=== PATIENT | male | born 1980 | race Hispanic/Latino ===

== ENCOUNTER 2019-11-26 23:08 | Emergency (ER) | payer OTHER ==
[2019-11-26 23:50] LABS: BASOPHILS % (AUTO) 1.2 % (0.0-5.0); EOSINOPHILS % (AUTO) 2.2 % (0.0-8.0); HEMATOCRIT 49.3 % (42-54); LYMPHOCYTES % (AUTO) 38.2 % (21.0-51.0); MEAN CORPUSCULAR HEMOGLOBIN 31.4 pg (27.0-33.0); MEAN CORPUSCULAR HGB CONC 35.7 g/dL (32.0-36.0); MONOCYTES % (AUTO) 7.5 % (3.0-13.0); NEUTROPHILS % (AUTO) 50.7 % (40.0-77.0); PLATELET COUNT (AUTO) 202 K/uL (130-400); RED CELL DISTRIBUTION WIDTH 13.3 % (11.0-15.5)
[2019-11-26] MEDS ORDERED: SODIUM CHLORIDE 0.9% 1000ML 1,000 ML IV ONE (23:53)
[2019-11-26 23:57] LABS: POTASSIUM 4.3 mmol/L (3.5-5.1)
[2019-11-26 23:58] LABS: INR 1.03 (0.85-1.15); PROTHROMBIN TIME 10.8 SEC (9.6-11.6)
[2019-11-27 00:02] LABS: ALBUMIN 4.2 g/dL (3.5-5.0); BILIRUBIN,TOTAL 0.3 mg/dL (0.2-1.0); TOTAL PROTEIN, SERUM 8.1 g/dL (6.0-8.3)
[2019-11-27 00:24] LABS: APPEARANCE,URINE Clear (CLEAR); BILIRUBIN,URINE Negative (NEGATIVE); COLOR,URINE Yellow (YELLOW); GLUCOSE, URINE (UA) Negative (NEGATIVE); KETONES,URINE Negative (NEGATIVE); LEUKOCYTE ESTERASE ,URINE Negative (NEGATIVE); NITRATE,URINE Negative (NEGATIVE); OCCULT BLOOD,URINE Negative (NEGATIVE); PROTEIN,URINE Negative (NEGATIVE); UROBILINOGEN,URINE 0.2 mg/dL (0.2-1.0)
== END 2019-11-27 01:08 | disposition home or self-care (01) ==
LOC: EDH 23:08
DX: F43.9 Reaction to severe stress, unspecified (principal); R42 Dizziness and giddiness; Z72.0 Tobacco use; Z90.49 Acquired absence of other specified parts of digestive tract
CPT/HCPCS: 36415; 71045; 80053; 81003; 82550; 84484; 85025; 85610; 85730; 93005; 96360; 99285; J7030

== ENCOUNTER 2020-02-01 14:52 | Emergency (ER) | payer SELFPAY ==
[2020-02-01 15:14] LABS: BASOPHILS % (AUTO) 1.3 % (0.0-5.0); EOSINOPHILS % (AUTO) 2.1 % (0.0-8.0); HEMATOCRIT 49.1 % (42-54); LYMPHOCYTES % (AUTO) 44.1 % (21.0-51.0); MEAN CORPUSCULAR HEMOGLOBIN 31.5 pg (27.0-33.0); MEAN CORPUSCULAR VOLUME 87.4 fL (79-99); MONOCYTES % (AUTO) 5.1 % (3.0-13.0); PLATELET COUNT (AUTO) 185 K/uL (130-400); RED BLOOD CELL COUNT(AUTO) 5.62 MIL/uL (4.50-6.20); RED CELL DISTRIBUTION WIDTH 12.8 % (11.0-15.5); WHITE BLOOD COUNT (AUTO) 5.3 K/uL (4.8-10.8)
[2020-02-01 15:26] LABS: INR 1.06 (0.85-1.15); PARTIAL THROMBOPLASTIN TIME 26.7 SEC (26.3-35.5); PROTHROMBIN TIME 11.4 SEC (9.6-11.6)
[2020-02-01 15:27] LABS: POTASSIUM 4.2 mmol/L (3.5-5.1)
[2020-02-01 15:31] LABS: ALBUMIN 4.6 g/dL (3.5-5.0); BILIRUBIN,TOTAL 0.8 mg/dL (0.2-1.0); TOTAL PROTEIN, SERUM 8.1 g/dL (6.0-8.3)
[2020-02-01 16:51] LABS: APPEARANCE,URINE Clear (CLEAR); BILIRUBIN,URINE Negative (NEGATIVE); COLOR,URINE Yellow (YELLOW); GLUCOSE, URINE (UA) Negative (NEGATIVE); KETONES,URINE Negative (NEGATIVE); LEUKOCYTE ESTERASE ,URINE Negative (NEGATIVE); NITRATE,URINE Negative (NEGATIVE); OCCULT BLOOD,URINE Negative (NEGATIVE); PROTEIN,URINE Negative (NEGATIVE); UROBILINOGEN,URINE 0.2 mg/dL (0.2-1.0)
[2020-02-01 17:03] LABS: AMPHET/METH SCREEN,URINE NEGATIVE (NEGATIVE); BARBITURATE SCREEN, URINE NEGATIVE (NEGATIVE); BENZODIAZEPINES SCREEN,URINE NEGATIVE (NEGATIVE); CANNABINOID SCREEN,URINE NEGATIVE (NEGATIVE); COCAINE SCREEN,URINE NEGATIVE (NEGATIVE); OPIATE SCREEN,URINE NEGATIVE (NEGATIVE); PHENCYCLIDINE SCREEN,URINE NEGATIVE (NEGATIVE)
[2020-02-01] MEDS ORDERED: IOHEXOL-350 75 ML VIAL IV ONE (17:12)
== END 2020-02-01 19:38 | disposition home or self-care (01) ==
LOC: EDH 14:52
DX: R53.1 Weakness (principal); Z90.49 Acquired absence of other specified parts of digestive tract; Z72.0 Tobacco use
CPT/HCPCS: 36415; 70450; 70496; 70498; 70551; 71045; 80053; 80305; 81003; 82550; 82948; 83721; 84484; 85025; 85610; 85730; 93005; 96374; 96375; 99285; Q9967

== ENCOUNTER 2020-04-01 06:30 | Inpatient (IN) | payer OTHER ==
[2020-04-01 08:26] LABS: BASOPHILS % (AUTO) 0.5 % (0.0-5.0); EOSINOPHILS % (AUTO) 0.3 % (0.0-8.0); HEMATOCRIT 48.4 % (42-54); LYMPHOCYTES % (AUTO) 35.1 % (21.0-51.0); MEAN CORPUSCULAR HEMOGLOBIN 31.4 pg (27.0-33.0); MEAN CORPUSCULAR HGB CONC 36.6 g/dL (32.0-36.0); MONOCYTES % (AUTO) 9.6 % (3.0-13.0); NEUTROPHILS % (AUTO) 54.2 % (40.0-77.0); PLATELET COUNT (AUTO) 155 K/uL (130-400); RED BLOOD CELL COUNT(AUTO) 5.63 MIL/uL (4.50-6.20); RED CELL DISTRIBUTION WIDTH 12.7 % (11.0-15.5); WHITE BLOOD COUNT (AUTO) 3.9 K/uL (4.8-10.8)
[2020-04-01 08:46] LABS: CREATININE 0.9 mg/dL (0.5-1.5); POTASSIUM 3.7 mmol/L (3.5-5.1)
[2020-04-01 08:50] LABS: ALBUMIN 4.2 g/dL (3.5-5.0); BILIRUBIN,TOTAL 0.7 mg/dL (0.2-1.0); CRP QUANTITATIVE 29.3 mg/L (0.00-9.0); TOTAL PROTEIN, SERUM 7.8 g/dL (6.0-8.3)
[2020-04-01 09:29] LABS: ABG BASE EXCESS -0.9 mmol/L (-2.0-3.0); ABG HCO3 22.1 mmol/L (21.0-28.0); ABG PCO2 32 mmHg (35-48)
[2020-04-01] MEDS ORDERED: MAG HYDROX/AL HYDROX/SIMETH ES 30 ML SUSP UDCUP PO PRN (13:00)
[2020-04-01] MEDS ORDERED: DiphenhydrAMINE HCL 50 MG/ML VIAL IV PRN (13:00)
[2020-04-01] MEDS ORDERED: DIPHENHYDRAMINE HCL 25 MG CAPSULE PO PRN (13:00)
[2020-04-01] MEDS ORDERED: DEXAMETHASONE SOD PHOSPHATE 4 MG/ML 1ML VIAL IVP SCH (13:00)
[2020-04-01] MEDS ORDERED: ONDANSETRON HCL 4 MG/2 ML VIAL IV PRN (13:00)
[2020-04-01] MEDS ORDERED: NITROGLYCERIN 0.4 MG SL TAB SL PRN (13:00)
[2020-04-01] MEDS ORDERED: GUAIFENESIN-DM 200/20 MG 10 ML PO PRN (13:00)
[2020-04-01] MEDS ORDERED: ACETAMINOPHEN 325 MG TAB PO PRN ×2 (13:00)
[2020-04-01] MEDS ORDERED: LACTULOSE 20 GM/30 ML UDCUP PO PRN (13:00)
[2020-04-01] MEDS ORDERED: DEXAMETHASONE 4 MG TAB ONE (15:07)
[2020-04-01] MEDS ORDERED: FAMOTIDINE 20MG TAB 20 MG TAB PO SCH (21:00)
[2020-04-02 04:57] LABS: HEMATOCRIT 50.9 % (42-54); LYMPHOCYTES % (AUTO) 34.5 % (21.0-51.0); MEAN CORPUSCULAR HGB CONC 35.8 g/dL (32.0-36.0); MEAN CORPUSCULAR VOLUME 86.6 fL (79-99); MONOCYTES % (AUTO) 5.3 % (3.0-13.0); NEUTROPHILS % (AUTO) 60.2 % (40.0-77.0); PLATELET COUNT (AUTO) 156 K/uL (130-400); RED BLOOD CELL COUNT(AUTO) 5.88 MIL/uL (4.50-6.20); RED CELL DISTRIBUTION WIDTH 12.5 % (11.0-15.5); WHITE BLOOD COUNT (AUTO) 2.1 K/uL (4.8-10.8)
[2020-04-02 05:26] LABS: ALANINE AMINOTRANSFERASE 36 U/L (12-78); ALBUMIN 4.1 g/dL (3.5-5.0); ASPARTATE AMINOTRANSFERASE 26 U/L (10-37); BILIRUBIN,TOTAL 0.6 mg/dL (0.2-1.0); CARBON DIOXIDE 26 mmol/L (21-32); CHLORIDE 102 mmol/L (101-111); CREATININE 0.8 mg/dL (0.5-1.5); GLOMERULAR FILTR. RATE CALC 116 mL/min (>60); GLUCOSE,RANDOM 120 mg/dL (70-105); LACTATE DEHYDROGENASE 258 U/L (81-234); POTASSIUM 4.6 mmol/L (3.5-5.1); SODIUM SERUM 139 mmol/L (136-145); TOTAL PROTEIN, SERUM 8.3 g/dL (6.0-8.3); UREA NITROGEN, BLOOD 11 mg/dL (7-18)
[2020-04-02] MEDS ORDERED: FAMOTIDINE 20MG TAB 20 MG TAB ONE (07:20)
[2020-04-02] MEDS ORDERED: DEXAMETHASONE SOD PHOSPHATE 4 MG/ML 1ML VIAL ONE (07:20)
[2020-04-02] MEDS ORDERED: ENOXAPARIN SODIUM 40 MG/0.4 ML SYRINGE SQ ONE (07:21)
[2020-04-02] MEDS ORDERED: ENOXAPARIN SODIUM 40 MG/0.4 ML SYRINGE SQ SCH (09:00)
--- NOTE | 2020-04-02 15:00 | NUR ---
CHART REVIEWED FOR IA, NO ANSWER AT PHONE NUMBER PROVIDED PATIENTS SPOUSE RECENTLY IN THE HOSPTIAL- IS ACTIVE/INPD/ NO DME LIVES WITH FAMILY, COVID + WITH SYMPTOMS- DCP HOME Addendum: 04/04/20 at 1532 by LISA ANDERSON RN Amended: Links added.
[2020-04-02] MEDS ORDERED: FAMOTIDINE/PF 20 MG/2 ML VIAL IV ONE (20:55)
[2020-04-03 05:38] LABS: BASOPHILS % (AUTO) 0.2 % (0.0-5.0); HEMATOCRIT 50.5 % (42-54); LYMPHOCYTES % (AUTO) 22.3 % (21.0-51.0); MEAN CORPUSCULAR HEMOGLOBIN 30.8 pg (27.0-33.0); MEAN CORPUSCULAR HGB CONC 35.4 g/dL (32.0-36.0); MEAN CORPUSCULAR VOLUME 86.9 fL (79-99); MONOCYTES % (AUTO) 5.4 % (3.0-13.0); NEUTROPHILS % (AUTO) 71.9 % (40.0-77.0); PLATELET COUNT (AUTO) 182 K/uL (130-400); RED BLOOD CELL COUNT(AUTO) 5.81 MIL/uL (4.50-6.20); RED CELL DISTRIBUTION WIDTH 12.7 % (11.0-15.5); WHITE BLOOD COUNT (AUTO) 8.2 K/uL (4.8-10.8)
[2020-04-03] MEDS ORDERED: ENOXAPARIN SODIUM 40 MG/0.4 ML SYRINGE SQ ONE (07:36)
[2020-04-03] MEDS ORDERED: DEXAMETHASONE SOD PHOSPHATE 4 MG/ML 1ML VIAL ONE (07:36)
[2020-04-03 08:15] LABS: ALANINE AMINOTRANSFERASE 36 U/L (12-78); ALBUMIN 4.1 g/dL (3.5-5.0); ASPARTATE AMINOTRANSFERASE 16 U/L (10-37); BILIRUBIN,TOTAL 0.6 mg/dL (0.2-1.0); CARBON DIOXIDE 29 mmol/L (21-32); CHLORIDE 102 mmol/L (101-111); GLOMERULAR FILTR. RATE CALC 89 mL/min (>60); GLUCOSE,RANDOM 98 mg/dL (70-105); LACTATE DEHYDROGENASE 220 U/L (81-234); POTASSIUM 3.8 mmol/L (3.5-5.1); SODIUM SERUM 141 mmol/L (136-145); TOTAL PROTEIN, SERUM 7.9 g/dL (6.0-8.3); UREA NITROGEN, BLOOD 17 mg/dL (7-18)
[2020-04-03] MEDS ORDERED: ACETAMINOPHEN 325 MG TAB ONE (08:26)
[2020-04-03] MEDS ORDERED: FAMOTIDINE 20MG TAB 20 MG TAB ONE (09:59)
[2020-04-03] MEDS ORDERED: DEXA6TAB PO (15:16)
[2020-04-03] MEDS ORDERED: AZIT250T PO (15:19)
== END 2020-04-03 16:50 | disposition home or self-care (01) | DRG 177 ==
LOC: EDH 06:30 → EDHIP 06:31
PROVIDERS: ADMIT Family Medicine; ATTEND Family Medicine
DX: U07.1 COVID-19 (principal); J12.89 Other viral pneumonia; J96.01 Acute respiratory failure with hypoxia; Z90.49 Acquired absence of other specified parts of digestive tract
CPT/HCPCS: 0099U; 36415; 36600; 71045; 71250; 80053; 82728; 82803; 83605; 83615; 84145; 85025; 85378; 86140; 86850; 86900; 86901; 87804; 87880; G0378; J1100; J1650; J3490; J8540; U0003

== ENCOUNTER 2020-04-05 14:14 | Emergency (ER) | payer MEDICAID, OTHER ==
[~2020-04-05 14:14] MED LIST: AZIT250T PO; DEXA6TAB PO
[2020-04-05] MEDS ORDERED: ACETAMINOPHEN EXTRA STRENGTH 500 MG TABLET ONE (14:19)
[2020-04-05 15:24] LABS: BASOPHILS % (AUTO) 0.2 % (0.0-5.0); LYMPHOCYTES % (AUTO) 7.6 % (21.0-51.0); MEAN CORPUSCULAR HEMOGLOBIN 31.4 pg (27.0-33.0); MEAN CORPUSCULAR HGB CONC 37.1 g/dL (32.0-36.0); MEAN CORPUSCULAR VOLUME 84.7 fL (79-99); PLATELET COUNT (AUTO) 177 K/uL (130-400); RED BLOOD CELL COUNT(AUTO) 5.67 MIL/uL (4.50-6.20); RED CELL DISTRIBUTION WIDTH 12.1 % (11.0-15.5); WHITE BLOOD COUNT (AUTO) 8.7 K/uL (4.8-10.8)
[2020-04-05 15:39] LABS: CARBON DIOXIDE 22 mmol/L (21-32); CHLORIDE 97 mmol/L (101-111); GLOMERULAR FILTR. RATE CALC 89 mL/min (>60); GLUCOSE,RANDOM 113 mg/dL (70-105); POTASSIUM 3.5 mmol/L (3.5-5.1); SODIUM SERUM 133 mmol/L (136-145); UREA NITROGEN, BLOOD 16 mg/dL (7-18)
[2020-04-05 15:43] LABS: INR 1.17 (0.85-1.15); PARTIAL THROMBOPLASTIN TIME 30.3 SEC (26.3-35.5); PROTHROMBIN TIME 12.6 SEC (9.6-11.6)
[2020-04-05 15:50] LABS: ALANINE AMINOTRANSFERASE 41 U/L (12-78); ALBUMIN 3.7 g/dL (3.5-5.0); ASPARTATE AMINOTRANSFERASE 22 U/L (10-37); BILIRUBIN,TOTAL 0.8 mg/dL (0.2-1.0); CREATINE KINASE, TOTAL 32 U/L (21-232); MYOGLOBIN 32 ng/mL (10-92); TOTAL PROTEIN, SERUM 7.9 g/dL (6.0-8.3); TROPONIN I < 0.04 ng/mL (0.00-0.06)
[2020-04-05 16:52] LABS: ABG HCO3 22.9 mmol/L (21.0-28.0); ABG OXYGEN SATURATION 96.8 % (95.0-99.0); ABG PCO2 33 mmHg (35-48)
== END 2020-04-05 18:58 | disposition home or self-care (01) ==
LOC: EDH 14:14
DX: U07.1 COVID-19 (principal); J18.9 Pneumonia, unspecified organism; Z90.49 Acquired absence of other specified parts of digestive tract
CPT/HCPCS: 36415; 36600; 71045; 80053; 82435; 82550; 82803; 82947; 83605; 83874; 84132; 84145; 84295; 84484; 85018; 85025; 85378; 85610; 85730; 87040; 93005

== ENCOUNTER 2021-08-03 20:19 | Emergency (ER) | payer MEDICAID, OTHER ==
[~2021-08-03] VITALS: Ht 177.8 cm; Wt 109.8 kg
[2021-08-03 20:37] VITALS: BP 139/94
[2021-08-03] MEDS ORDERED: ONDANSETRON ODT 4MG TAB ONE (21:16)
[2021-08-03] MEDS ORDERED: ONDANSETRON ODT 4MG TAB SL ONE (21:30)
[2021-08-03] MEDS ORDERED: ONDA4TAB10 PO (22:03)
== END 2021-08-03 22:15 | disposition home or self-care (01) ==
LOC: EDH 20:19
DX: R42 Dizziness and giddiness (principal); R11.10 Vomiting, unspecified; R10.13 Epigastric pain; Z77.098 Contact with and (suspected) exposure to other hazardous, chiefly nonmedicinal, chemicals; Z79.52 Long term (current) use of systemic steroids; Z79.899 Other long term (current) drug therapy